=== PATIENT | female | born 1945 | race Two or more races ===

== ENCOUNTER 2023-05-09 20:27 | Inpatient (IN) | payer MEDICARE, OTHER ==
[~2023-05-09] VITALS: Ht 160 cm; Wt 70.9 kg
[2023-05-09 21:31] LABS: Basophils # (auto) 0 10 ^3/uL (0-0.2); Basophils % (auto) 0.2 % (0.0-2.0); Eosinophils # (auto) 0 10 ^3/uL (0-0.8); Hematocrit 41.6 % (36.0-46.0); Hemoglobin 13.5 g/dL (12.2-16.2); Lymphocytes # (auto) 0.7 10 ^3/uL (0.4-5.4); Mean Corpuscular Hemoglobin 27.3 pg (28.0-32.0); Mean Corpuscular Hgb Conc. 32.4 g/dL (32.0-36.0); Mean Corpuscular Volume 84.3 fL (80.0-100.0); Monocytes # (auto) 0.6 10 ^3/uL (0-1.3); Monocytes % (auto) 5.9 % (0.0-12.0); Neutrophils # (auto) 8.9 10 ^3/uL (1.6-8.6); Neutrophils % (auto) 86.9 % (37.0-80.0); Red Blood Cells 4.93 10^6/uL (4.0-5.20); Red Cell Distribution Width 15.6 % (11.8-14.3); White Blood Cell 10.3 10^3/uL (4.4-10.8)
[2023-05-09 21:45] LABS: INR 1.17 (0.9-1.15); Partial Thromboplastin Time 31.3 SEC (24.5-34.5); Prothrombin Time 12.2 sec (9.3-11.8)
[2023-05-09 21:50] LABS: Alanine Aminotransferase 20 U/L (7-40); Albumin 4.6 g/dL (3.2-4.8); Alkaline Phosphatase 62 U/L (46-116); Anion Gap 10 (5-15); Aspartate Aminotransferase 38 U/L (13-40); BUN/Creatinine Ratio 30.8 (10.0-20.0); Blood Alcohol < 3.0 mg/dL (<10); Blood Urea Nitrogen 49 mg/dL (9-23); Calcium 9.7 mg/dL (8.7-10.4); Carbon Dioxide 21 mmol/L (20-30); Chloride 110 mmol/L (98-107); Glucose 168 mg/dL (74-106); Magnesium 2.4 mg/dL (1.6-2.6); Potassium 4.1 mmol/L (3.5-5.1); Sodium 141 mmol/L (136-145)
[2023-05-09 21:51] LABS: Bilirubin, Total 0.9 mg/dL (0.2-1.0); Total Protein 7.4 g/dL (5.7-8.2)
[2023-05-10 01:15] VITALS: O2SAT 94
[2023-05-10] MEDS ORDERED: LACTATED RINGER'S 2,000 ML IV ONE (01:15)
[2023-05-10] MEDS ORDERED: cefTRIAXone 1GM/50ML D5W 50 ML IV ONE (01:15)
[2023-05-10] MEDS: LACTATED RINGER'S 1,000 ML IV ONE ×2 (01:56→02:05)
[2023-05-10 02:29] LABS: Urine Epithelial Cast None Seen /hpf (<5)
[2023-05-10 02:47] LABS: Urine Bacteria MOD /hpf (None Seen); Urine Blood Negative /uL (Negative); Urine Clarity HAZY (Clear); Urine Color Yellow (Yellow); Urine Mucus FEW (None Seen); Urine Protein, UAD TRACE (Negative); Urine Urobilinogen Normal (Negative); Urine WBC 36 /hpf (0 - 5); Urine pH 5.5 (5.0-8.0)
[2023-05-10] MEDS ORDERED: ALBUMIN 25% 100 ML IV ONE ×2 (03:15→06:45)
[2023-05-10] MEDS ORDERED: LORA-1123 PO (04:27)
[2023-05-10] MEDS ORDERED: HYDR-4902 PO (04:27)
[2023-05-10] MEDS ORDERED: TRAM50TA2 PO (04:27)
[2023-05-10] MEDS ORDERED: SENN-58 PO (04:27)
[2023-05-10] MEDS ORDERED: IBUP-1453 PO (04:27)
[2023-05-10] MEDS ORDERED: QUET100T47 PO (04:27)
[2023-05-10] MEDS ORDERED: LOSA50TA46 PO (04:27)
[2023-05-10] MEDS ORDERED: TRAZ-181 PO (04:27)
[2023-05-10] MEDS ORDERED: fentaNYL CITRATE 100 MCG/2 ML VL IV ONE ×2 (04:45→05:30)
[2023-05-10] MEDS ORDERED: MAGNESIUM SULFATE 1GM/100ML 100 ML IV ONE (06:45)
[2023-05-10] MEDS ORDERED: PIPERACILLIN-TAZOB 3.375GM 100 ML IV ONE (06:45)
[2023-05-10] MEDS ORDERED: SODIUM CHLORIDE 0.9% 1,000 ML IV ONE (06:45)
[2023-05-10] MEDS ORDERED: methylPREDNISolone SOD SUCC 125 MG/2 ML VL IV ONE (06:45)
[2023-05-10] MEDS ORDERED: LACTATED RINGER'S 1,000 ML IV ONE ×2 (07:15)
[2023-05-10 07:30] VITALS: PULSE 90; RESP 21; O2SAT 95
[2023-05-10] MEDS ORDERED: AMIODARONE BOLUS KIT 100 ML IV ONE (11:30)
[2023-05-10] MEDS ORDERED: AMIODARONE 450mg/250ml AE 250 ML IV SCH ×2 (11:45→20:00)
[2023-05-10] MEDS: LORazepam 2MG/ML-1ML VIAL IV PRN ×2 (12:21→16:14)
[2023-05-10] MEDS: SODIUM CHLOR 0.9% PF (SALINE LOCK) 10ML VIAL/SYR IV SCH ×2 (14:10→21:36)
[2023-05-10] MEDS: ENOXAPARIN SOD 100 MG/1 ML SYRINGE SC SCH ×2 (14:25→21:36)
[2023-05-10] MEDS: MORPHINE SULFATE INJ 2 MG/ml SYRG IV PRN ×2 (14:59→20:05)
[2023-05-10] MEDS: SODIUM CHLORIDE 0.9% 1,000 ML IV SCH (15:06)
[2023-05-10] MEDS ORDERED: AMIODARONE 450mg/250ml AE 250 ML IV ONE (20:01)
[2023-05-10 23:18] VITALS: PULSE 75; RESP 17; O2SAT 96
[2023-05-10] MEDS ORDERED: diphenhdrAMINE HCL 50 MG/1 ML VL IV ONE (23:45)
[2023-05-11] MEDS: SODIUM CHLORIDE 0.9% 1,000 ML IV SCH ×2 (03:50→19:57)
[2023-05-11] MEDS: MORPHINE SULFATE INJ 2 MG/ml SYRG IV PRN ×2 (05:52→12:49)
[2023-05-11] MEDS: SODIUM CHLOR 0.9% PF (SALINE LOCK) 10ML VIAL/SYR IV SCH ×3 (06:00→22:00)
[2023-05-11 07:40] VITALS: PULSE 75; RESP 20; O2SAT 95
[2023-05-11] MEDS: ONDANSETRON HCL 4 MG/2 ML VIAL IV PRN (12:48)
[2023-05-11] MEDS: ENOXAPARIN SOD 100 MG/1 ML SYRINGE SC SCH ×2 (12:50→22:00)
[2023-05-11 19:55] VITALS: PULSE 79; RESP 20; O2SAT 98
[2023-05-11] MEDS: LORazepam 2MG/ML-1ML VIAL IV PRN (20:39)
[2023-05-12] MEDS: LORazepam 2MG/ML-1ML VIAL IV PRN (02:55)
[2023-05-12] MEDS: SODIUM CHLORIDE 0.9% 1,000 ML IV SCH ×2 (06:03→19:50)
[2023-05-12] MEDS: SODIUM CHLOR 0.9% PF (SALINE LOCK) 10ML VIAL/SYR IV SCH ×3 (06:03→22:14)
[2023-05-12] MEDS: ENOXAPARIN SOD 100 MG/1 ML SYRINGE SC SCH ×2 (09:23→22:14)
[2023-05-12 09:31] VITALS: BP 153/87; PULSE 82; RESP 24; O2SAT 100
[2023-05-12] MEDS ORDERED: QUET1TAB11 PO (11:45)
[2023-05-12] MEDS ORDERED: ZOLP5TAB5 PO (11:45)
[2023-05-12] MEDS: MORPHINE SULFATE INJ 2 MG/ml SYRG IV PRN (14:34)
[2023-05-12] MEDS ORDERED: cefTRIAXone 1GM/50ML D5W 50 ML IV ONE (16:30)
[2023-05-12 16:43] VITALS: BP 121/71; PULSE 75; RESP 26; TEMP 98.2; O2SAT 100
[2023-05-12] MEDS ORDERED: FUROSEMIDE 40 MG/4 ML VIAL IV ONE (17:00)
[2023-05-12] MEDS ORDERED: ALBUTEROL SULF 2.5 MG/0.5ML(0.5%) NEB SOLN NEB PRN (17:00)
[2023-05-12 17:35] LABS: Base Excess 0.6 mmol/L (-2.0-2.0)
[2023-05-12 20:00] VITALS: BP 122/73; PULSE 78; PULSE 84; RESP 21; TEMP 97.7; O2SAT 100
[2023-05-12 20:14] VITALS: BP 121/71; PULSE 75; RESP 24; TEMP 98.2; O2SAT 99
[2023-05-13] VITALS (9 sets, daily range): BP systolic 135–156; BP diastolic 70–88; PULSE 80–93; RESP 18–24; TEMP 97.8–98.2; O2SAT 94–98
[2023-05-13] MEDS: SODIUM CHLOR 0.9% PF (SALINE LOCK) 10ML VIAL/SYR IV SCH ×3 (06:56→22:05)
[2023-05-13] MEDS: cefTRIAXone 1GM/50ML D5W 50 ML IV SCH (10:00)
[2023-05-13] MEDS: ENOXAPARIN SOD 100 MG/1 ML SYRINGE SC SCH ×2 (10:00→22:05)
[2023-05-13] MEDS ORDERED: FUROSEMIDE 40 MG/4 ML VIAL IV ONE (11:45)
[2023-05-13] MEDS: FUROSEMIDE 40 MG/4 ML VIAL IV SCH (17:42)
[2023-05-14] VITALS (8 sets, daily range): BP systolic 111–166; BP diastolic 66–80; PULSE 78–89; RESP 16–20; TEMP 96.7–98.6; O2SAT 90–99
[2023-05-14] MEDS: FUROSEMIDE 40 MG/4 ML VIAL IV SCH ×2 (05:38→17:30)
[2023-05-14] MEDS: SODIUM CHLOR 0.9% PF (SALINE LOCK) 10ML VIAL/SYR IV SCH ×3 (05:40→20:45)
[2023-05-14] MEDS: ENOXAPARIN SOD 100 MG/1 ML SYRINGE SC SCH (09:04)
[2023-05-14] MEDS: cefTRIAXone 1GM/50ML D5W 50 ML IV SCH (09:04)
[2023-05-14] MEDS: HYDROcodone-ACET 5/325MG TAB PO PRN (12:16)
[2023-05-14 13:47] LABS: Basophils # (auto) 0 10 ^3/uL (0-0.2); Basophils % (auto) 0.3 % (0.0-2.0); Eosinophils # (auto) 0 10 ^3/uL (0-0.8); Eosinophils % (auto) 0.5 % (0.0-7.0); Hematocrit 39.7 % (36.0-46.0); Hemoglobin 12.9 g/dL (12.2-16.2); Lymphocytes # (auto) 0.7 10 ^3/uL (0.4-5.4); Lymphocytes % (auto) 8.7 % (10.0-50.0); Mean Corpuscular Hgb Conc. 32.4 g/dL (32.0-36.0); Mean Corpuscular Volume 83.4 fL (80.0-100.0); Monocytes # (auto) 0.6 10 ^3/uL (0-1.3); Monocytes % (auto) 6.8 % (0.0-12.0); Neutrophils # (auto) 6.9 10 ^3/uL (1.6-8.6); Neutrophils % (auto) 83.7 % (37.0-80.0); Red Blood Cells 4.76 10^6/uL (4.0-5.20); Red Cell Distribution Width 15.1 % (11.8-14.3); White Blood Cell 8.3 10^3/uL (4.4-10.8)
[2023-05-14 13:57] LABS: Chloride 101 mmol/L (98-107); Potassium 2.8 mmol/L (3.5-5.1); Sodium 144 mmol/L (136-145)
[2023-05-14 13:58] LABS: Anion Gap 11 (5-15); Calcium 9.6 mg/dL (8.5-10.1); Carbon Dioxide 32 mmol/L (20-30)
[2023-05-14 14:03] LABS: BUN/Creatinine Ratio 50.6 (10.0-20.0); Blood Urea Nitrogen 41 mg/dL (9-23); Glucose 142 mg/dL (74-106)
[2023-05-14] MEDS ORDERED: POTASSIUM CHL 20MEQ/100ML 100 ML IV ONE (17:17)
[2023-05-14] MEDS: POTASSIUM CHL 20MEQ/100ML 100 ML IV SCH ×2 (17:28→20:45)
[2023-05-15] VITALS (7 sets, daily range): BP systolic 110–138; BP diastolic 68–87; PULSE 76–98; RESP 16–21; TEMP 97.9–98.7; O2SAT 95–100
[2023-05-15] MEDS: HYDROcodone-ACET 5/325MG TAB PO PRN (01:51)
[2023-05-15] MEDS ORDERED: POTASSIUM CHL 20 Meq TABLET PO ONE (03:30)
[2023-05-15 05:36] LABS: Basophils # (auto) 0 10 ^3/uL (0-0.2); Basophils % (auto) 0.2 % (0.0-2.0); Eosinophils # (auto) 0.1 10 ^3/uL (0-0.8); Eosinophils % (auto) 1.5 % (0.0-7.0); Hematocrit 38.8 % (36.0-46.0); Hemoglobin 12.8 g/dL (12.2-16.2); Lymphocytes # (auto) 0.6 10 ^3/uL (0.4-5.4); Lymphocytes % (auto) 10.2 % (10.0-50.0); Mean Corpuscular Hemoglobin 27.4 pg (28.0-32.0); Monocytes # (auto) 0.6 10 ^3/uL (0-1.3); Monocytes % (auto) 10.4 % (0.0-12.0); Neutrophils # (auto) 4.6 10 ^3/uL (1.6-8.6); Neutrophils % (auto) 77.7 % (37.0-80.0); Nucleated Red Blood Cells % 0.1 %; Red Blood Cells 4.67 10^6/uL (4.0-5.20)
[2023-05-15 05:38] LABS: Chloride 103 mmol/L (98-107); Potassium 3.2 mmol/L (3.5-5.1); Sodium 143 mmol/L (136-145)
[2023-05-15 05:39] LABS: Anion Gap 10 (5-15); Calcium 9.5 mg/dL (8.5-10.1); Carbon Dioxide 30 mmol/L (20-30)
[2023-05-15 05:44] LABS: BUN/Creatinine Ratio 43.9 (10.0-20.0); Glucose 106 mg/dL (74-106)
[2023-05-15 05:47] LABS: Blood Urea Nitrogen 29 mg/dL (9-23)
[2023-05-15] MEDS: FUROSEMIDE 40 MG/4 ML VIAL IV SCH ×2 (06:50→17:34)
[2023-05-15] MEDS: SODIUM CHLOR 0.9% PF (SALINE LOCK) 10ML VIAL/SYR IV SCH ×3 (06:51→21:48)
[2023-05-15] MEDS: cefTRIAXone 1GM/50ML D5W 50 ML IV SCH (09:36)
[2023-05-15] MEDS: CLOPIDOGREL BISULFATE 75 MG TAB PO SCH (09:36)
[2023-05-15] MEDS: ENOXAPARIN SOD 40 MG/0.4 ML SYRINGE SC SCH (09:37)
[2023-05-15] MEDS ORDERED: POTASSIUM CHL 20MEQ/100ML 100 ML IV ONE (14:53)
[2023-05-15] MEDS: LORazepam 2MG/ML-1ML VIAL IV PRN (21:55)
[2023-05-16] VITALS (7 sets, daily range): BP systolic 112–131; BP diastolic 45–71; PULSE 74–106; RESP 16–19; TEMP 97.6–98.8; O2SAT 95–100
[2023-05-16] MEDS: SODIUM CHLOR 0.9% PF (SALINE LOCK) 10ML VIAL/SYR IV SCH ×3 (05:44→20:55)
[2023-05-16] MEDS: FUROSEMIDE 40 MG/4 ML VIAL IV SCH ×2 (05:45→17:36)
[2023-05-16 06:55] LABS: Basophils # (auto) 0 10 ^3/uL (0-0.2); Basophils % (auto) 0.5 % (0.0-2.0); Eosinophils # (auto) 0.1 10 ^3/uL (0-0.8); Eosinophils % (auto) 2.6 % (0.0-7.0); Hematocrit 40.9 % (36.0-46.0); Hemoglobin 13.4 g/dL (12.2-16.2); Lymphocytes # (auto) 0.8 10 ^3/uL (0.4-5.4); Lymphocytes % (auto) 18.1 % (10.0-50.0); Mean Corpuscular Hemoglobin 27.3 pg (28.0-32.0); Mean Corpuscular Hgb Conc. 32.7 g/dL (32.0-36.0); Mean Corpuscular Volume 83.4 fL (80.0-100.0); Monocytes # (auto) 0.7 10 ^3/uL (0-1.3); Neutrophils # (auto) 2.8 10 ^3/uL (1.6-8.6); Neutrophils % (auto) 62.8 % (37.0-80.0); Nucleated Red Blood Cells % 0.1 %; Red Cell Distribution Width 15.1 % (11.8-14.3); White Blood Cell 4.5 10^3/uL (4.4-10.8)
[2023-05-16 07:55] LABS: Anion Gap 10 (5-15); BUN/Creatinine Ratio 34.4 (10.0-20.0); Blood Urea Nitrogen 22 mg/dL (9-23); Calcium 9.9 mg/dL (8.5-10.1); Carbon Dioxide 29 mmol/L (20-30); Chloride 103 mmol/L (98-107); Glucose 109 mg/dL (74-106); Potassium 3.2 mmol/L (3.5-5.1); Sodium 142 mmol/L (136-145)
[2023-05-16] MEDS: ENOXAPARIN SOD 40 MG/0.4 ML SYRINGE SC SCH (09:22)
[2023-05-16] MEDS: CLOPIDOGREL BISULFATE 75 MG TAB PO SCH (09:22)
[2023-05-16] MEDS: cefTRIAXone 1GM/50ML D5W 50 ML IV SCH (09:22)
[2023-05-16] MEDS: HYDROcodone-ACET 5/325MG TAB PO PRN (10:55)
[2023-05-16] MEDS ORDERED: POTASSIUM CHL 20 Meq TABLET PO ONE (12:45)
[2023-05-16] MEDS: ACETAMINOPHEN 325 MG TAB PO PRN (17:39)
[2023-05-17] VITALS (7 sets, daily range): BP systolic 105–143; BP diastolic 62–85; PULSE 85–97; RESP 14–20; TEMP 97.1–98; O2SAT 95–100
[2023-05-17] MEDS: LORazepam 2MG/ML-1ML VIAL IV PRN ×2 (01:23→22:29)
[2023-05-17] MEDS: FUROSEMIDE 40 MG/4 ML VIAL IV SCH ×2 (05:40→17:44)
[2023-05-17] MEDS: SODIUM CHLOR 0.9% PF (SALINE LOCK) 10ML VIAL/SYR IV SCH ×3 (05:41→20:52)
[2023-05-17 06:09] LABS: Basophils # (auto) 0 10 ^3/uL (0-0.2); Basophils % (auto) 0.6 % (0.0-2.0); Eosinophils # (auto) 0.2 10 ^3/uL (0-0.8); Eosinophils % (auto) 4.1 % (0.0-7.0); Hematocrit 39.5 % (36.0-46.0); Hemoglobin 13.2 g/dL (12.2-16.2); Lymphocytes # (auto) 1.1 10 ^3/uL (0.4-5.4); Lymphocytes % (auto) 22.5 % (10.0-50.0); Mean Corpuscular Hemoglobin 27.7 pg (28.0-32.0); Mean Corpuscular Hgb Conc. 33.4 g/dL (32.0-36.0); Mean Corpuscular Volume 83.1 fL (80.0-100.0); Monocytes # (auto) 0.7 10 ^3/uL (0-1.3); Monocytes % (auto) 14.7 % (0.0-12.0); Neutrophils # (auto) 2.8 10 ^3/uL (1.6-8.6); Neutrophils % (auto) 58.1 % (37.0-80.0); Nucleated Red Blood Cells % 0.3 %; Red Blood Cells 4.75 10^6/uL (4.0-5.20); Red Cell Distribution Width 15.1 % (11.8-14.3); White Blood Cell 4.7 10^3/uL (4.4-10.8)
[2023-05-17 06:18] LABS: Anion Gap 8 (5-15); Carbon Dioxide 29 mmol/L (20-30); Chloride 101 mmol/L (98-107); Potassium 3.7 mmol/L (3.5-5.1); Sodium 138 mmol/L (136-145)
[2023-05-17 06:20] LABS: Calcium 9.5 mg/dL (8.7-10.4)
[2023-05-17 06:24] LABS: Glucose 102 mg/dL (74-106)
[2023-05-17 06:25] LABS: BUN/Creatinine Ratio 35.5 (10.0-20.0); Blood Urea Nitrogen 27 mg/dL (9-23)
[2023-05-17] MEDS: CLOPIDOGREL BISULFATE 75 MG TAB PO SCH (09:26)
[2023-05-17] MEDS: cefTRIAXone 1GM/50ML D5W 50 ML IV SCH (09:26)
[2023-05-17] MEDS: ENOXAPARIN SOD 40 MG/0.4 ML SYRINGE SC SCH (09:27)
[2023-05-17] MEDS ORDERED: LACTULOSE 20Gm/30ML SOLN PO ONE (13:45)
[2023-05-18] VITALS (7 sets, daily range): BP systolic 97–148; BP diastolic 69–94; PULSE 75–101; RESP 16–20; TEMP 98–98.3; O2SAT 96–99
[2023-05-18] MEDS: SODIUM CHLOR 0.9% PF (SALINE LOCK) 10ML VIAL/SYR IV SCH ×3 (05:42→22:11)
[2023-05-18] MEDS: FUROSEMIDE 40 MG/4 ML VIAL IV SCH ×2 (05:43→17:29)
[2023-05-18] MEDS: cefTRIAXone 1GM/50ML D5W 50 ML IV SCH (09:12)
[2023-05-18] MEDS: CLOPIDOGREL BISULFATE 75 MG TAB PO SCH (09:13)
[2023-05-18] MEDS: ENOXAPARIN SOD 40 MG/0.4 ML SYRINGE SC SCH (09:13)
[2023-05-18] MEDS: ACETAMINOPHEN 325 MG TAB PO PRN (14:43)
[2023-05-18] MEDS: MORPHINE SULFATE INJ 2 MG/ml SYRG IV PRN (20:37)
[2023-05-19] VITALS (7 sets, daily range): BP systolic 106–138; BP diastolic 52–86; PULSE 70–76; RESP 18–20; TEMP 97.1–98; O2SAT 96–99
[2023-05-19] MEDS: FUROSEMIDE 40 MG/4 ML VIAL IV SCH ×2 (05:47→17:24)
[2023-05-19] MEDS: SODIUM CHLOR 0.9% PF (SALINE LOCK) 10ML VIAL/SYR IV SCH ×3 (05:47→22:00)
[2023-05-19 06:31] LABS: Anion Gap 7 (5-15); Carbon Dioxide 32 mmol/L (20-30); Chloride 98 mmol/L (98-107); Potassium 3.6 mmol/L (3.5-5.1); Sodium 137 mmol/L (136-145)
[2023-05-19 06:37] LABS: BUN/Creatinine Ratio 31.9 (10.0-20.0); Basophils # (auto) 0 10 ^3/uL (0-0.2); Basophils % (auto) 0.9 % (0.0-2.0); Blood Urea Nitrogen 23 mg/dL (9-23); Eosinophils # (auto) 0.2 10 ^3/uL (0-0.8); Eosinophils % (auto) 3.1 % (0.0-7.0); Glucose 99 mg/dL (74-106); Hematocrit 40.4 % (36.0-46.0); Hemoglobin 13.4 g/dL (12.2-16.2); Lymphocytes # (auto) 1.3 10 ^3/uL (0.4-5.4); Lymphocytes % (auto) 25.3 % (10.0-50.0); Mean Corpuscular Hemoglobin 27.7 pg (28.0-32.0); Mean Corpuscular Hgb Conc. 33.3 g/dL (32.0-36.0); Mean Corpuscular Volume 83.1 fL (80.0-100.0); Monocytes # (auto) 0.7 10 ^3/uL (0-1.3); Monocytes % (auto) 12.6 % (0.0-12.0); Neutrophils % (auto) 58.1 % (37.0-80.0); Nucleated Red Blood Cells % 0.7 %; Red Blood Cells 4.86 10^6/uL (4.0-5.20); Red Cell Distribution Width 14.9 % (11.8-14.3); White Blood Cell 5.3 10^3/uL (4.4-10.8)
[2023-05-19] MEDS: ENOXAPARIN SOD 40 MG/0.4 ML SYRINGE SC SCH (09:10)
[2023-05-19] MEDS: CLOPIDOGREL BISULFATE 75 MG TAB PO SCH (09:10)
[2023-05-19] MEDS: cefTRIAXone 1GM/50ML D5W 50 ML IV SCH (09:11)
[2023-05-19] MEDS: LORazepam 2MG/ML-1ML VIAL IV PRN (23:59)
[2023-05-20 04:48] VITALS: BP 112/71; PULSE 72; RESP 18; TEMP 97.8; O2SAT 96
[2023-05-20] MEDS: FUROSEMIDE 40 MG/4 ML VIAL IV SCH ×2 (06:00→17:38)
[2023-05-20] MEDS: SODIUM CHLOR 0.9% PF (SALINE LOCK) 10ML VIAL/SYR IV SCH ×3 (06:02→21:58)
[2023-05-20 07:10] LABS: Chloride 99 mmol/L (98-107); Potassium 3.2 mmol/L (3.5-5.1); Sodium 135 mmol/L (136-145)
[2023-05-20 07:11] LABS: Anion Gap 7 (5-15); Calcium 9.7 mg/dL (8.5-10.1); Carbon Dioxide 29 mmol/L (20-30)
[2023-05-20 07:16] LABS: BUN/Creatinine Ratio 28.3 (10.0-20.0); Blood Urea Nitrogen 17 mg/dL (9-23); Glucose 106 mg/dL (74-106)
[2023-05-20 07:21] LABS: Basophils # (auto) 0.1 10 ^3/uL (0-0.2); Eosinophils # (auto) 0.1 10 ^3/uL (0-0.8); Eosinophils % (auto) 1.6 % (0.0-7.0); Hematocrit 40.2 % (36.0-46.0); Hemoglobin 13.4 g/dL (12.2-16.2); Lymphocytes # (auto) 1.4 10 ^3/uL (0.4-5.4); Lymphocytes % (auto) 25.3 % (10.0-50.0); Mean Corpuscular Hemoglobin 27.7 pg (28.0-32.0); Mean Corpuscular Hgb Conc. 33.3 g/dL (32.0-36.0); Mean Corpuscular Volume 83.2 fL (80.0-100.0); Monocytes # (auto) 0.5 10 ^3/uL (0-1.3); Neutrophils # (auto) 3.5 10 ^3/uL (1.6-8.6); Neutrophils % (auto) 63.1 % (37.0-80.0); Nucleated Red Blood Cells % 0.1 %; Red Blood Cells 4.83 10^6/uL (4.0-5.20); Red Cell Distribution Width 14.9 % (11.8-14.3); White Blood Cell 5.6 10^3/uL (4.4-10.8)
[2023-05-20 08:30] VITALS: BP 96/68; PULSE 75; RESP 18; TEMP 97.9; O2SAT 96
[2023-05-20 09:00] VITALS: BP 96/68; PULSE 75; RESP 18; TEMP 97.9; O2SAT 96
[2023-05-20] MEDS: cefTRIAXone 1GM/50ML D5W 50 ML IV SCH (09:29)
[2023-05-20] MEDS: CLOPIDOGREL BISULFATE 75 MG TAB PO SCH (09:30)
[2023-05-20] MEDS: ENOXAPARIN SOD 40 MG/0.4 ML SYRINGE SC SCH (09:31)
[2023-05-20] MEDS: MORPHINE SULFATE INJ 2 MG/ml SYRG IV PRN (12:53)
[2023-05-20 17:00] VITALS: BP 123/77; PULSE 84; RESP 19; TEMP 98; O2SAT 97
[2023-05-20] MEDS ORDERED: POTASSIUM CHL 20 Meq TABLET PO ONE (17:00)
[2023-05-20 20:00] VITALS: BP 114/58; PULSE 95; RESP 18; RESP 20; TEMP 97.8
[2023-05-20 21:32] VITALS: BP 114/58; PULSE 95; RESP 20; TEMP 97.8; O2SAT 100
[2023-05-21] VITALS (7 sets, daily range): BP systolic 110–143; BP diastolic 60–72; PULSE 84–97; RESP 16–20; TEMP 98–101.1; O2SAT 96–99
[2023-05-21] MEDS: SODIUM CHLOR 0.9% PF (SALINE LOCK) 10ML VIAL/SYR IV SCH ×3 (06:00→21:29)
[2023-05-21] MEDS: FUROSEMIDE 40 MG/4 ML VIAL IV SCH ×2 (06:12→17:18)
[2023-05-21 07:08] LABS: Hematocrit 42.7 % (36.0-46.0); Mean Corpuscular Hemoglobin 27.3 pg (28.0-32.0); Mean Corpuscular Hgb Conc. 32.8 g/dL (32.0-36.0); Mean Corpuscular Volume 83.3 fL (80.0-100.0); Red Blood Cells 5.13 10^6/uL (4.0-5.20); Red Cell Distribution Width 15.1 % (11.8-14.3); White Blood Cell 19.2 10^3/uL (4.4-10.8)
[2023-05-21 07:24] LABS: Basophils % (manual) 0 (0.0-2.0); Blast Cells 0; Eosinophils % (manual) 0 (0-7); Metamyelocytes % 0; Myelocytes % 0; Promyelocytes % 0; Reactive Lymphocytes 0
[2023-05-21 07:47] LABS: Chloride 100 mmol/L (98-107); Potassium 3.8 mmol/L (3.5-5.1); Sodium 137 mmol/L (136-145)
[2023-05-21 07:48] LABS: Anion Gap 13 (5-15); Carbon Dioxide 24 mmol/L (20-30)
[2023-05-21 07:49] LABS: Calcium 10.1 mg/dL (8.5-10.1)
[2023-05-21 07:50] LABS: Anisocytosis Slight; Band Neutrophils % (manual) 3; Lymphocytes % (manual) 5 (10.0-50.0); Monocytes % (manual) 7 (0-12); Platelet Estimate Adequate
[2023-05-21 07:54] LABS: BUN/Creatinine Ratio 23.1 (10.0-20.0); Blood Urea Nitrogen 18 mg/dL (9-23); Glucose 112 mg/dL (74-106)
[2023-05-21] MEDS: cefTRIAXone 1GM/50ML D5W 50 ML IV SCH (09:32)
[2023-05-21] MEDS: CLOPIDOGREL BISULFATE 75 MG TAB PO SCH (09:32)
[2023-05-21] MEDS: ENOXAPARIN SOD 40 MG/0.4 ML SYRINGE SC SCH (09:36)
[2023-05-21] MEDS: ACETAMINOPHEN 325 MG TAB PO PRN (17:18)
[2023-05-21] MEDS: HYDROcodone-ACET 5/325MG TAB PO PRN (19:46)
[2023-05-21] MEDS: MORPHINE SULFATE INJ 2 MG/ml SYRG IV PRN (22:23)
[2023-05-22] MEDS: LORazepam 2MG/ML-1ML VIAL IV PRN (01:06)
[2023-05-22 05:00] VITALS: BP 111/94; PULSE 112; RESP 18; TEMP 98.3; O2SAT 97
[2023-05-22 05:35] LABS: Hemoglobin 13.6 g/dL (12.2-16.2); Red Cell Distribution Width 15.3 % (11.8-14.3)
[2023-05-22 05:39] LABS: Hematocrit 41.3 % (36.0-46.0); Mean Corpuscular Hemoglobin 27.4 pg (28.0-32.0); Mean Corpuscular Volume 82.9 fL (80.0-100.0); Red Blood Cells 4.98 10^6/uL (4.0-5.20)
[2023-05-22 05:42] LABS: Chloride 97 mmol/L (98-107); Potassium 3.7 mmol/L (3.5-5.1); Sodium 134 mmol/L (136-145)
[2023-05-22 05:43] LABS: Anion Gap 13 (5-15); Calcium 9.6 mg/dL (8.5-10.1); Carbon Dioxide 24 mmol/L (20-30)
[2023-05-22 05:48] LABS: BUN/Creatinine Ratio 18.8 (10.0-20.0); Blood Urea Nitrogen 26 mg/dL (9-23); Glucose 124 mg/dL (74-106)
[2023-05-22 06:06] LABS: White Blood Cell 34.1 10^3/uL (4.4-10.8)
[2023-05-22 06:07] LABS: Basophils % (manual) 0 (0.0-2.0); Blast Cells 0; Eosinophils % (manual) 0 (0-7); Metamyelocytes % 0; Promyelocytes % 0; Reactive Lymphocytes 0
[2023-05-22] MEDS: FUROSEMIDE 40 MG/4 ML VIAL IV SCH (06:22)
[2023-05-22] MEDS: SODIUM CHLOR 0.9% PF (SALINE LOCK) 10ML VIAL/SYR IV SCH ×3 (06:23→21:40)
[2023-05-22 08:00] VITALS: BP 100/59; PULSE 96; RESP 17; TEMP 98.3; O2SAT 95
[2023-05-22 08:00] LABS: Band Neutrophils % (manual) 12; Lymphocytes % (manual) 2 (10.0-50.0); Monocytes % (manual) 4 (0-12); Myelocytes % 2
[2023-05-22 08:01] LABS: Platelet Estimate Adequate
[2023-05-22 09:00] VITALS: BP 100/59; PULSE 96; RESP 17; TEMP 98.3; O2SAT 100
[2023-05-22] MEDS: cefTRIAXone 1GM/50ML D5W 50 ML IV SCH (09:49)
[2023-05-22] MEDS: ENOXAPARIN SOD 40 MG/0.4 ML SYRINGE SC SCH (09:50)
[2023-05-22] MEDS: CLOPIDOGREL BISULFATE 75 MG TAB PO SCH (09:50)
[2023-05-22] MEDS: HYDROcodone-ACET 5/325MG TAB PO PRN (09:51)
[2023-05-22] MEDS ORDERED: SODIUM CHLORIDE 0.9% 1,000 ML IV SCH (13:00)
[2023-05-22 13:06] LABS: Base Excess -1.5 mmol/L (-2.0-2.0)
[2023-05-22] MEDS: SODIUM CHLORIDE 0.9% 1,000 ML IV SCH ×2 (13:51→21:52)
[2023-05-22] MEDS: PIPERACILLIN-TAZOB 3.375GM 100 ML IV SCH ×2 (14:05→21:40)
[2023-05-22 14:15] LABS: Basophils # (auto) 0 10 ^3/uL (0-0.2); Basophils % (auto) 0.1 % (0.0-2.0); Eosinophils # (auto) 0 10 ^3/uL (0-0.8); Hemoglobin 13.3 g/dL (12.2-16.2); Lymphocytes # (auto) 1.2 10 ^3/uL (0.4-5.4); Lymphocytes % (auto) 4.2 % (10.0-50.0); Mean Corpuscular Hemoglobin 27.2 pg (28.0-32.0); Mean Corpuscular Hgb Conc. 32.4 g/dL (32.0-36.0); Monocytes # (auto) 1.4 10 ^3/uL (0-1.3); Monocytes % (auto) 4.8 % (0.0-12.0); Neutrophils # (auto) 25.8 10 ^3/uL (1.6-8.6); Neutrophils % (auto) 90.9 % (37.0-80.0); Red Blood Cells 4.88 10^6/uL (4.0-5.20); Red Cell Distribution Width 15.5 % (11.8-14.3); White Blood Cell 28.4 10^3/uL (4.4-10.8)
[2023-05-22 14:23] LABS: Anion Gap 12 (5-15); Carbon Dioxide 23 mmol/L (20-30); Chloride 101 mmol/L (98-107); Potassium 4.4 mmol/L (3.5-5.1); Sodium 136 mmol/L (136-145)
[2023-05-22 14:24] LABS: Calcium 9.2 mg/dL (8.5-10.1)
[2023-05-22 14:29] LABS: BUN/Creatinine Ratio 16.4 (10.0-20.0); Blood Urea Nitrogen 34 mg/dL (9-23); Glucose 118 mg/dL (74-106)
[2023-05-22] MEDS ORDERED: VANCOMYCIN PER PHARMACY 0 MG IV SCH (14:45)
[2023-05-22 15:06] LABS: Lactic Acid w/Reflex 2.1 mmol/L (0.4-2.0)
[2023-05-22 17:09] VITALS: BP 129/96; PULSE 95; RESP 15; TEMP 97.6; O2SAT 97
[2023-05-22 20:00] VITALS: PULSE 104; PULSE 93; RESP 20; O2SAT 97
[2023-05-22 22:00] VITALS: BP 82/47; PULSE 100; RESP 20; TEMP 101.4; O2SAT 94
[2023-05-22] MEDS: ACETAMINOPHEN 325 MG TAB PO PRN (22:32)
[2023-05-22] MEDS ORDERED: SODIUM CHLORIDE 0.9% 1,000 ML IV ONE (23:45)
[2023-05-23] VITALS (73 sets, daily range): BP systolic 61–133; BP diastolic 37–92; PULSE 60–99; RESP 9–26; TEMP 97.6–101.1; O2SAT 88–100
[2023-05-23 05:19] LABS: Basophils # (auto) 0 10 ^3/uL (0-0.2); Basophils % (auto) 0.2 % (0.0-2.0); Eosinophils # (auto) 0 10 ^3/uL (0-0.8); Lymphocytes % (auto) 4.2 % (10.0-50.0); Mean Corpuscular Hemoglobin 27.1 pg (28.0-32.0); Mean Corpuscular Hgb Conc. 32.4 g/dL (32.0-36.0); Mean Corpuscular Volume 83.6 fL (80.0-100.0); Monocytes # (auto) 1.3 10 ^3/uL (0-1.3); Monocytes % (auto) 5.4 % (0.0-12.0); Neutrophils # (auto) 21.2 10 ^3/uL (1.6-8.6); Neutrophils % (auto) 90.2 % (37.0-80.0); Red Blood Cells 4.43 10^6/uL (4.0-5.20); Red Cell Distribution Width 15.2 % (11.8-14.3); White Blood Cell 23.5 10^3/uL (4.4-10.8)
[2023-05-23 05:29] LABS: Anion Gap 9 (5-15); Carbon Dioxide 25 mmol/L (20-30); Chloride 102 mmol/L (98-107); Potassium 3.6 mmol/L (3.5-5.1); Sodium 136 mmol/L (136-145)
[2023-05-23 05:31] LABS: Calcium 8.7 mg/dL (8.7-10.4)
[2023-05-23 05:35] LABS: BUN/Creatinine Ratio 24.6 (10.0-20.0); Blood Urea Nitrogen 41 mg/dL (9-23); Glucose 99 mg/dL (74-106)
[2023-05-23] MEDS: PIPERACILLIN-TAZOB 3.375GM 100 ML IV SCH ×3 (05:43→21:57)
[2023-05-23] MEDS: SODIUM CHLOR 0.9% PF (SALINE LOCK) 10ML VIAL/SYR IV SCH ×3 (05:43→21:58)
[2023-05-23] MEDS: ACETAMINOPHEN 325 MG TAB PO PRN ×2 (06:05→16:17)
[2023-05-23] MEDS ORDERED: PHENYLEPHRINE IV 250 ML IV ONE (06:40)
[2023-05-23] MEDS: PHENYLEPHRINE IV 250 ML IV SCH ×4 (07:01→16:36)
[2023-05-23] MEDS: HYDROcodone-ACET 5/325MG TAB PO PRN ×2 (08:57→18:27)
[2023-05-23] MEDS: SODIUM CHLORIDE 0.9% 1,000 ML IV SCH ×2 (09:45→20:42)
[2023-05-23] MEDS: ENOXAPARIN SOD 30 MG/0.3 ML SYRINGE SC SCH (10:01)
[2023-05-23] MEDS: CLOPIDOGREL BISULFATE 75 MG TAB PO SCH (10:01)
[2023-05-23] MEDS: LORazepam 2MG/ML-1ML VIAL IV PRN (20:42)
[2023-05-24] VITALS (79 sets, daily range): BP systolic 84–145; BP diastolic 45–87; PULSE 68–104; RESP 12–32; TEMP 97.8–100.4; O2SAT 94–100
[2023-05-24 03:53] LABS: Basophils # (auto) 0 10 ^3/uL (0-0.2); Basophils % (auto) 0.2 % (0.0-2.0); Eosinophils # (auto) 0.1 10 ^3/uL (0-0.8); Eosinophils % (auto) 0.4 % (0.0-7.0); Hematocrit 37.7 % (36.0-46.0); Hemoglobin 12.2 g/dL (12.2-16.2); Lymphocytes # (auto) 0.9 10 ^3/uL (0.4-5.4); Lymphocytes % (auto) 3.5 % (10.0-50.0); Mean Corpuscular Hemoglobin 27.4 pg (28.0-32.0); Mean Corpuscular Hgb Conc. 32.3 g/dL (32.0-36.0); Mean Corpuscular Volume 84.8 fL (80.0-100.0); Monocytes # (auto) 1.3 10 ^3/uL (0-1.3); Monocytes % (auto) 5.1 % (0.0-12.0); Neutrophils # (auto) 22.3 10 ^3/uL (1.6-8.6); Neutrophils % (auto) 90.8 % (37.0-80.0); Red Blood Cells 4.45 10^6/uL (4.0-5.20); Red Cell Distribution Width 15.7 % (11.8-14.3); White Blood Cell 24.6 10^3/uL (4.4-10.8)
[2023-05-24 03:59] LABS: Chloride 109 mmol/L (98-107); Potassium 3.2 mmol/L (3.5-5.1); Sodium 138 mmol/L (136-145)
[2023-05-24 04:00] LABS: Anion Gap 10 (5-15); Carbon Dioxide 19 mmol/L (20-30)
[2023-05-24 04:01] LABS: Calcium 8.6 mg/dL (8.7-10.4)
[2023-05-24 04:05] LABS: BUN/Creatinine Ratio 26.6 (10.0-20.0); Blood Urea Nitrogen 17 mg/dL (9-23); Glucose 97 mg/dL (74-106)
[2023-05-24] MEDS: POTASSIUM CHL 20MEQ/100ML 100 ML IV SCH ×2 (04:54→08:44)
[2023-05-24] MEDS: PIPERACILLIN-TAZOB 3.375GM 100 ML IV SCH ×3 (05:29→21:28)
[2023-05-24] MEDS: SODIUM CHLOR 0.9% PF (SALINE LOCK) 10ML VIAL/SYR IV SCH ×3 (05:29→21:29)
[2023-05-24] MEDS: SODIUM CHLORIDE 0.9% 1,000 ML IV SCH ×3 (05:45→21:29)
[2023-05-24] MEDS: CLOPIDOGREL BISULFATE 75 MG TAB PO SCH (09:05)
[2023-05-24] MEDS: ENOXAPARIN SOD 30 MG/0.3 ML SYRINGE SC SCH (09:05)
[2023-05-24] MEDS: HYDROcodone-ACET 5/325MG TAB PO PRN (09:05)
[2023-05-24] MEDS: LORazepam 2MG/ML-1ML VIAL IV PRN (11:59)
[2023-05-24] MEDS: ONDANSETRON HCL 4 MG/2 ML VIAL IV PRN (12:02)
[2023-05-24] MEDS: PHENYLEPHRINE IV 250 ML IV SCH ×2 (13:45→21:29)
[2023-05-24] MEDS: metroNIDAZOLE 500MG/100ML 100 ML IV SCH (16:21)
[2023-05-24] MEDS: ACETAMINOPHEN 325 MG TAB PO PRN (23:51)
[2023-05-25] VITALS (20 sets, daily range): BP systolic 128–159; BP diastolic 71–91; PULSE 87–111; RESP 15–25; TEMP 98.3–99.4; O2SAT 97–100
[2023-05-25] MEDS: LORazepam 2MG/ML-1ML VIAL IV PRN ×3 (01:00→21:34)
[2023-05-25] MEDS: metroNIDAZOLE 500MG/100ML 100 ML IV SCH ×3 (03:47→18:16)
[2023-05-25 04:20] LABS: Eosinophils # (auto) 0.1 10 ^3/uL (0-0.8); Eosinophils % (auto) 0.6 % (0.0-7.0); Hematocrit 39.5 % (36.0-46.0); Lymphocytes # (auto) 1.1 10 ^3/uL (0.4-5.4); Mean Corpuscular Hgb Conc. 30.8 g/dL (32.0-36.0); Nucleated Red Blood Cells % 0.1 %
[2023-05-25 04:24] LABS: Basophils # (auto) 0 10 ^3/uL (0-0.2); Basophils % (auto) 0.2 % (0.0-2.0); Hemoglobin 12.2 g/dL (12.2-16.2); Lymphocytes % (auto) 6.1 % (10.0-50.0); Mean Corpuscular Volume 87.6 fL (80.0-100.0); Monocytes # (auto) 1.1 10 ^3/uL (0-1.3); Neutrophils # (auto) 15.7 10 ^3/uL (1.6-8.6); Neutrophils % (auto) 87.1 % (37.0-80.0); Red Cell Distribution Width 16.4 % (11.8-14.3)
[2023-05-25 04:35] LABS: Alanine Aminotransferase 11 U/L (7-40); Albumin 3.3 g/dL (3.2-4.8); Alkaline Phosphatase 88 U/L (46-116); Anion Gap 10 (5-15); Aspartate Aminotransferase 15 U/L (13-40); Blood Urea Nitrogen 11 mg/dL (9-23); Calcium 8.4 mg/dL (8.7-10.4); Carbon Dioxide 16 mmol/L (20-30); Chloride 114 mmol/L (98-107); Glucose 101 mg/dL (74-106); Potassium 3.6 mmol/L (3.5-5.1); Sodium 140 mmol/L (136-145)
[2023-05-25 04:36] LABS: Bilirubin, Total 0.4 mg/dL (0.2-1.0); Total Protein 5.8 g/dL (5.7-8.2)
[2023-05-25] MEDS: PIPERACILLIN-TAZOB 3.375GM 100 ML IV SCH ×3 (06:01→21:34)
[2023-05-25] MEDS: SODIUM CHLOR 0.9% PF (SALINE LOCK) 10ML VIAL/SYR IV SCH ×3 (06:01→21:34)
[2023-05-25] MEDS: SODIUM CHLORIDE 0.9% 1,000 ML IV SCH ×2 (06:03→13:07)
[2023-05-25] MEDS: PHENYLEPHRINE IV 250 ML IV SCH ×2 (06:25→14:45)
[2023-05-25] MEDS: ACETAMINOPHEN 325 MG TAB PO PRN (09:06)
[2023-05-25] MEDS: ENOXAPARIN SOD 40 MG/0.4 ML SYRINGE SC SCH (09:06)
[2023-05-25] MEDS: CLOPIDOGREL BISULFATE 75 MG TAB PO SCH (09:06)
[2023-05-25] MEDS: ONDANSETRON HCL 4 MG/2 ML VIAL IV PRN (14:10)
[2023-05-26] VITALS (7 sets, daily range): BP systolic 108–139; BP diastolic 67–93; PULSE 90–110; RESP 18–21; TEMP 98.3–98.8; O2SAT 97–100
[2023-05-26] MEDS: metroNIDAZOLE 500MG/100ML 100 ML IV SCH ×3 (01:50→16:39)
[2023-05-26] MEDS: LORazepam 2MG/ML-1ML VIAL IV PRN ×3 (02:03→23:47)
[2023-05-26] MEDS: SODIUM CHLOR 0.9% PF (SALINE LOCK) 10ML VIAL/SYR IV SCH ×3 (05:44→23:27)
[2023-05-26] MEDS: PIPERACILLIN-TAZOB 3.375GM 100 ML IV SCH (05:45)
[2023-05-26] MEDS: SODIUM CHLORIDE 0.9% 1,000 ML IV SCH (05:50)
[2023-05-26] MEDS: ENOXAPARIN SOD 40 MG/0.4 ML SYRINGE SC SCH (09:54)
[2023-05-26] MEDS: CLOPIDOGREL BISULFATE 75 MG TAB PO SCH (09:54)
[2023-05-26 10:23] LABS: Basophils # (auto) 0 10 ^3/uL (0-0.2); Basophils % (auto) 0.3 % (0.0-2.0); Eosinophils # (auto) 0 10 ^3/uL (0-0.8); Eosinophils % (auto) 0.3 % (0.0-7.0); Hematocrit 36.5 % (36.0-46.0); Hemoglobin 11.6 g/dL (12.2-16.2); Lymphocytes # (auto) 0.7 10 ^3/uL (0.4-5.4); Lymphocytes % (auto) 5.9 % (10.0-50.0); Mean Corpuscular Hemoglobin 27.2 pg (28.0-32.0); Mean Corpuscular Hgb Conc. 31.7 g/dL (32.0-36.0); Mean Corpuscular Volume 85.9 fL (80.0-100.0); Monocytes # (auto) 0.8 10 ^3/uL (0-1.3); Monocytes % (auto) 6.2 % (0.0-12.0); Neutrophils # (auto) 11.1 10 ^3/uL (1.6-8.6); Neutrophils % (auto) 87.3 % (37.0-80.0); Red Blood Cells 4.25 10^6/uL (4.0-5.20); Red Cell Distribution Width 16.1 % (11.8-14.3); White Blood Cell 12.7 10^3/uL (4.4-10.8)
[2023-05-26 10:30] LABS: Calcium 8.6 mg/dL (8.5-10.1); Chloride 116 mmol/L (98-107); Potassium 3.2 mmol/L (3.5-5.1)
[2023-05-26 10:31] LABS: Anion Gap 11 (5-15); Carbon Dioxide 19 mmol/L (20-30)
[2023-05-26 10:36] LABS: BUN/Creatinine Ratio 25.5 (10.0-20.0); Blood Urea Nitrogen 12 mg/dL (9-23); Glucose 116 mg/dL (74-106)
[2023-05-26 10:40] LABS: Sodium 146 mmol/L (136-145)
[2023-05-26] MEDS: ACETAMINOPHEN 325 MG TAB PO PRN (13:28)
[2023-05-26] MEDS ORDERED: MORPHINE SULFATE INJ 2 MG/ml SYRG IV PRN (14:00)
[2023-05-26] MEDS ORDERED: ALPRAZolam 0.5 MG TAB PO PRN (14:00)
[2023-05-26] MEDS: POTASSIUM CHLORIDE 40 MEQ in D5W 5% 1,000 ML IV SCH ×2 (16:31→21:42)
[2023-05-27] MEDS: metroNIDAZOLE 500MG/100ML 100 ML IV SCH ×2 (01:19→09:31)
[2023-05-27 05:00] VITALS: BP 137/85; PULSE 105; RESP 18; TEMP 99.6; O2SAT 100
[2023-05-27] MEDS: SODIUM CHLOR 0.9% PF (SALINE LOCK) 10ML VIAL/SYR IV SCH ×2 (05:22→17:18)
[2023-05-27] MEDS: LORazepam 2MG/ML-1ML VIAL IV PRN (05:24)
[2023-05-27 06:41] LABS: Basophils # (auto) 0 10 ^3/uL (0-0.2); Basophils % (auto) 0.3 % (0.0-2.0); Eosinophils # (auto) 0.1 10 ^3/uL (0-0.8); Eosinophils % (auto) 0.9 % (0.0-7.0); Hematocrit 36.9 % (36.0-46.0); Hemoglobin 11.9 g/dL (12.2-16.2); Lymphocytes # (auto) 0.9 10 ^3/uL (0.4-5.4); Lymphocytes % (auto) 7.5 % (10.0-50.0); Mean Corpuscular Hemoglobin 27.2 pg (28.0-32.0); Mean Corpuscular Hgb Conc. 32.1 g/dL (32.0-36.0); Mean Corpuscular Volume 84.6 fL (80.0-100.0); Monocytes # (auto) 0.8 10 ^3/uL (0-1.3); Monocytes % (auto) 6.1 % (0.0-12.0); Neutrophils # (auto) 10.5 10 ^3/uL (1.6-8.6); Neutrophils % (auto) 85.2 % (37.0-80.0); Red Blood Cells 4.37 10^6/uL (4.0-5.20); Red Cell Distribution Width 15.9 % (11.8-14.3); White Blood Cell 12.3 10^3/uL (4.4-10.8)
[2023-05-27 06:51] LABS: Anion Gap 10 (5-15); Carbon Dioxide 20 mmol/L (20-30); Chloride 114 mmol/L (98-107); Potassium 3.7 mmol/L (3.5-5.1); Sodium 144 mmol/L (136-145)
[2023-05-27 06:52] LABS: Calcium 8.9 mg/dL (8.5-10.1)
[2023-05-27 06:57] LABS: BUN/Creatinine Ratio 30.2 (10.0-20.0); Blood Urea Nitrogen 16 mg/dL (9-23); Glucose 129 mg/dL (74-106)
[2023-05-27 07:55] VITALS: PULSE 96; RESP 24; O2SAT 100
[2023-05-27 08:00] VITALS: BP 138/87; PULSE 96; RESP 24; TEMP 98.8; O2SAT 100
[2023-05-27] MEDS: POTASSIUM CHLORIDE 40 MEQ in D5W 5% 1,000 ML IV SCH (08:37)
[2023-05-27] MEDS: CLOPIDOGREL BISULFATE 75 MG TAB PO SCH (09:31)
[2023-05-27] MEDS: ENOXAPARIN SOD 40 MG/0.4 ML SYRINGE SC SCH (09:31)
[2023-05-27 13:00] VITALS: BP 149/92; PULSE 101; RESP 22; TEMP 98.9; O2SAT 100
[2023-05-27 16:29] VITALS: BP 149/92; PULSE 101; RESP 22; TEMP 98.9; O2SAT 100
[2023-05-27 16:51] VITALS: BP 120/84; PULSE 91; RESP 24; TEMP 98.7; O2SAT 100
== END 2023-05-27 19:17 | disposition hospice, home (50) | DRG 58 ==
LOC: ER 20:27 → EDBD 20:27 → TELE 05-10 07:09 → TELE-WESTW 05-12 09:15 → ICU WEST 05-23 07:30 → TELE-EAST 05-25 17:35
PROVIDERS: ADMIT Internal Medicine Pulmonary Disease; ATTEND Internal Medicine Pulmonary Disease
DX: D32.0 Benign neoplasm of cerebral meninges (principal); J96.01 Acute respiratory failure with hypoxia; I21.A1 Myocardial infarction type 2; G93.41 Metabolic encephalopathy; N17.9 Acute kidney failure, unspecified; E87.0 Hyperosmolality and hypernatremia; I47.20 Ventricular tachycardia, unspecified; E86.0 Dehydration; G30.9 Alzheimer's disease, unspecified; F02.80 Dementia in other diseases classified elsewhere, unspecified severity, without behavioral disturbance, psychotic disturbance, mood disturbance, and anxiety; N39.0 Urinary tract infection, site not specified; B96.20 Unspecified Escherichia coli [E. coli] as the cause of diseases classified elsewhere; D32.9 Benign neoplasm of meninges, unspecified; K59.00 Constipation, unspecified; F17.200 Nicotine dependence, unspecified, uncomplicated; E87.6 Hypokalemia
CPT/HCPCS: 36415; 36600; 70450; 70551; 71045; 71250; 72100; 72125; 73502; 74176; 80048; 80053; 80320; 81001; 82270; 82805; 82962; 83605; 83735; 84132; 84484; 85007; 85025; 85027; 85610; 85730; 87040; 87081; 87086; 87088; 87186; 92610; 93005; 93306; 97110; 97116; 97163; 97530; G0378; J2405; J2543; J3480; J3490; P9047